=== PATIENT | male | born 1940 | race Caucasian/White ===

== ENCOUNTER 2017-05-15 19:18 | Emergency (ER) | payer MEDICARE, OTHER ==
[~2017-05-15] VITALS: Ht 185.4 cm; Wt 94.1 kg
[2017-05-15 19:40] VITALS: BP 158/91
== END 2017-05-15 21:56 | disposition home or self-care (01) ==
LOC: ER 19:19
DX: M79.661 Pain in right lower leg (principal); Z98.890 Other specified postprocedural states
CPT/HCPCS: 93971; 99284

== ENCOUNTER 2024-08-27 08:09 | Emergency (ER) | payer MEDICARE, OTHER ==
[~2024-08-27] VITALS: Ht 185.4 cm; Wt 81.8 kg
[2024-08-27 08:17] VITALS: TEMP 97.5
--- NOTE | 2024-08-27 08:50 | Physician Documentation ---
History of Present Illness ~ Chief Complaint: Urinary Retention Stated Complaint: UNABLE TO URINATE Time Seen by MD: 08:45 Primary Medical Doctor: Dr. Pozo [facility] This is a pleasant 83-year-old gentleman with a known history of prostatomegaly, normally takes Flomax, out of Flomax for a week, comes in for evaluation of urinary retention starting for p.m. last night. He reports severe suprapubic pain and pressure. No particular palliating factors. Did not attempt to treat his symptoms. Similar to prior urinary retention. It has been 15 years since he had to have a Evans catheter. He states that the pharmacy told him that he can not refill Flomax until the . Denies any other symptoms such as fever, chills, chest pain, nausea, vomiting, diarrhea. No concern for tobacco, alcohol or illicit substances use Medication Reconciliation Allergies: Coded Allergies: No Known Allergies (Unverified , 08/27/24) Past Medical History Past Medical History: Bowel Obstruction Past Surgical History: orthopedic surgeries Alcohol Use: Occasionally Drug Use: none Lives In: Home Review of Systems ROS 10 point review of systems was performed and unless noted above in HPI is negative for acute process/complaint. Physical Exam Vital Signs: Temperature: 97.5, Heart Rate: 74, Respiratory Rate: 15, BP: 158/95, Pulse Oximetry: 99, Weight: 81.820 Physical Exam Physical examination: GENERAL: Awake, alert, oriented, GCS 15, no apparent distress, non-toxic appearing, answers questions, follows commands appropriately. HEENT: Atraumatic, normocephalic, pupils equal, extraocular muscles intact Active gross movements, sclerae anicteric, mucus membranes moist, no stridor. NECK: Midline, no JVD CARDIOVASCULAR: Good skin perfusion without evidence of pallor, mottling. PULMONARY: Nonlabored, symmetric chest rise, no audible wheezing, no accessory muscle use, no respiratory distress, speaking in full sentences. GASTROINTESTINAL: Distended suprapubically and tender to palpation NEUROLOGIC: Lucid with normal mental status. Normal facial symmetry. Moves all extremities symmetrically and with purpose. No truncal ataxia. Speech is fluid without evidence of dysarthria or aphasia, no focal deficits appreciated. EXTREMITIES: Acute deformities Skin: warm, dry PSYCHIATRIC: Normal affect, normal insight, normal concentration. Focused exam: [] Progress Results/Orders Results/Orders Orders - ROBERT ETIENNE DO * (A) Evans- Protocol * Q12H@ (08/27/24 08:44) * (A) Evans- Protocol * Q12H@ (08/27/24 08:45) Completed Orders - ROBERT ETIENNE DO Lidocaine 2% Jelly 11ml Syr (Glydo-Lidoc (08/27/24 08:45) Tamsulosin Capsule (Flomax Capsule) (08/27/24 08:49) Ua W/Microscopic, Cult If Ind (08/27/24 14:52) Medications Received in ER Medications (Trade) Dose Ordered Sig/Tiffany Route PRN Reason Start Time Stop Time Status Last Admin Dose Admin (Flomax capsule) 0.4 mg ONCE STAT PO 08/27/24 08:49 08/27/24 08:52 DC 08/27/24 09:37 0.4 MG Vital Signs 08/27/24 08/27/24 08/27/24 08:17 08:35 10:20 Temp 97.5 Pulse 74 72 Resp 14 15 15 B/P (MAP) 158/95 152/74 (100) Pulse Ox 99 100 Laboratory Tests Test 08/27/24 14:52 Urine Specimen Description Evans cath Urine Color Yellow Urine Clarity Slightly cloudy Urine pH 7.5 Urine Specific [place] 1.015 Urine Protein Trace Urine Glucose (UA) Negative Urine Ketones 15 H Urine Occult Blood Large H Urine Nitrite Negative Urine Bilirubin Negative Urine Urobilinogen 0.2 Urine Leukocyte Esterase Negative Urine RBC 50-100 Urine WBC None seen Urine Squamous Epithelial Cells None seen Urine Transitional Epithelial Cells Few Urine Bacteria Few Urine Mucus None seen Urine Culture Indicated Not ind Volume Urine Centrifuged 10 ml Urine Comment Medical Decision Making Findings Facility Status: ED Holds, [facility] process The plan was discussed with the patient, who demonstrates clear understanding of the plan and is in agreement with the plan unless otherwise noted in the chart. All questions have been answered, all concerns were addressed unless otherwise documented. I was available throughout their ED stay for frequent reassessment and questions. Differential Diagnoses (considered and possible or likely): [Acute urinary retention secondary to BPH, UTI, less likely acute kidney injury] ??Differential Diagnoses (considered and unlikely, not requiring evaluation currently): [See above] [facility] Data Please see HPI for the following: Independent Historians and external Records Review. Historian: [Patient] Independent Historians: ?[] Medication Management: [Reviewed medication list] Social History and determinants: [Reviewed] Please see the body of the note for the following: Any independent interpretations of ECG, imaging studies. All vitals signs/haemodynamics, ordered tests were independently reviewed and interpreted by myself. Nursing triage complaint and vitals reviewed, additional nursing notes were reviewed as available and I agree unless otherwise noted or documented in contradiction in the chart Vital Signs: Independently reviewed Labs: Independently interpreted Imaging: Independently interpreted Old Medical Records: Independently reviewed, see HPI for relevant summary and information Pulse Oximetry: [99%] interpreted as [normal on room air] by me Additionally notably showing: [Hemodynamically stable] UA is nondiagnostic for UTI. Tests considered but not ordered include: [Hematologic workup and imaging has been considered but does not appear to be necessary given clinical nature of diagnosis] Social Determinants of Health Impact: Patient was evaluated in [facility], [facility] [place] to healthcare due to below par ratio of patient to medical providers. [] Comorbid Conditions Impacting Present Evaluation and Care/Treatment: [BPH] Management Discussions with other Healthcare Providers: [Non] Treatment and Disposition Medication Management (Given or considered): [Evans catheter placement, dose of Flomax]. See EMR for details Consideration for Hospitalization/Escalation/Deescalation of Care: Admission for observation has been considered, [however the patient is able to tolerate p.o., their symptoms are controlled, they are able to rely on oral medications, and t heir chief complaint/diagnosis can be managed on outpatient basis.] ?ED Course:?[Nursing staff had difficulty placing a Evans catheter, Dr. Murphy was contacted and he kindly placed a Evans for us.] ?Shared decision making:?[Patient is hemodynamically stable for discharge home with follow with their primary care provider. [ Flomax was renewed.] Specific and cautious return precautions provided and discussed with full understanding. Any incidental findings were also discussed and follow up recommendations given. [] All questions answered. Patient/family were able to verbalize back return precautions. Patient/family agree to plan. Copies of imaging and laboratory studies were provided.] Code status:?FULL Please see the full Electronic Medical Record for full details of nursing documentation, medications list, other records of complete past medical history and conditions, vital signs, laboratory studies, and any radiologic study interpretations by radiologists. Portions of this note were completed using iWelcome dictation software and as a result there may exist minor errors in spelling. I have reviewed elements of past family and social history and agree as included in note. Departure Disposition: HOME / SELF CARE / HOMELESS Impression: Primary Impression: Acute urinary retention Additional Impression: Hematuria Condition: Improved Discharge Instructions: Acute Urinary Retention, Male Referrals: NO PRIMARY CARE PROVIDER (PCP) Prescriptions Tamsulosin Hcl* (Flomax*) 0.4 Mg Cap.sr.24h 1 CAP PO DAILY for 30 Days, #30 CAP Prov: ROBERT ETIENNE DO 08/27/24 Education Educated: Patient Educated regarding: diagnosis, treatment, prognosis, need for follow up Signature Scribe Signature: No scribe Attestation: This note accurately reflects clinical decisions, work performed by myself, Robert Etienne DO [place] ROBERT ETIENNE DO August 27, 2024 08:50
[2024-08-27] MEDS: LidoCAINE 2% Topical Jelly 11mL syringe (UROJET) TOP ONE (09:27)
[2024-08-27] MEDS: tamsulosin 0.4mg capsule PO STA (09:37)
--- NOTE | 2024-08-27 14:18 | CONSULTATION REPORT ---
Consult Providers to CC ~ History of Present Illness Reason for Admit\Complaint: urinary retention History of Present Illness Patient has a history of BPH and is managed by flomax and finasteride. He has previously had a history of urinary retention and has been seen by Dr. Giraldo before. He has recently run out of flomax. As a result they were unable to urinate. Multiple sousa catheters were attempted today. PROCEDURE: Patient was prepped and draped in the normal sterile fashion. I used an 18 bel[place] coude tipped catheter and was able to pass it beyond the prostate into the bladder. He has BPH which was obvious on catheter placement. I then put 10 mL in the balloon and attached it to gravity drainage. 900 mL of clear yellow urine then drained as a result. Allergies: Coded Allergies: No Known Allergies (Unverified , 08/27/24) Exam Vitals: Vital Signs Date Time Temp Pulse Resp B/P (MAP) Pulse Ox O2 Delivery O2 Flow Rate FiO2 08/27/24 10:20 72 15 152/74 (100) 100 08/27/24 08:17 97.5 Problems: (1) Acute urinary retention Status: Acute Assessment & Plan: Acute urinary retention from exacerbation of chronic BPH.I recommend bladder rest for at least a week. I will arrange for Urology follow- up. Also reccommend continuing flomax and finasteride. - Home with catheter - Continue flomax and finasteride - I will arrange Urology follow-up. NILESH RODRIGUEZ MD August 27, 2024 14:18
[2024-08-27 15:06] LABS: BILIRUBIN,URINE NEGATIVE (Neg); CLARITY,URINE SLIGHTLY CLOUDY (Clear); COLOR,URINE YELLOW (Yellow); GLUCOSE, URINE NEGATIVE (Neg); KETONES,URINE 15 mg/dl (Neg); LEUKOCYTE ESTERASE ,URINE NEGATIVE (Neg); NITRITES, URINE NEGATIVE (Neg); OCCULT BLOOD,URINE LARGE (Neg); PH,URINE 7.5 (4.8-8.0); PROTEIN,URINE TRACE mg/dl (Neg); UROBILINOGEN,URINE 0.2 E.U/dL (0.2-1.0)
[2024-08-27 15:09] LABS: UA COLLECTION TYPE FOLEY CATH
[2024-08-27 15:11] LABS: WBC,URINE NONE SEEN /HPF (0-4)
[2024-08-27 15:12] LABS: BACTERIA,URINE FEW /HPF (Neg); MUCUS STRANDS NONE SEEN /LPF (Neg); RBC,URINE 50-100 /HPF (0-2); SQUAMOUS EPITHELIAL CELL,UR NONE SEEN /LPF (FEW); TRANSITIONAL EPI CELLS,URINE FEW /HPF
[2024-08-27] MEDS ORDERED: TAMS-55 PO (15:33)
[2024-08-27 15:54] VITALS: BP 154/84; PULSE 78; RESP 15; O2SAT 100
== END 2024-08-27 15:55 | disposition home or self-care (01) ==
LOC: ER 08:10
DX: N40.1 Benign prostatic hyperplasia with lower urinary tract symptoms (principal); R33.8 Other retention of urine; R31.9 Hematuria, unspecified
CPT/HCPCS: 51702; 81001; 99284; A4314; A4338